=== PATIENT | female | born 1955 | race Caucasian/White ===

== ENCOUNTER 2016-11-29 15:52 | Emergency (ER) | payer OTHER ==
[~2016-11-29] VITALS: Ht 157.5 cm; Wt 105.5 kg
[2016-11-29 15:56] VITALS: BP 149/84; PULSE 78; RESP 20; O2SAT 98
--- NOTE | 2016-11-29 16:11 | ED.REPORT ---
HPI-Extremity Problem Upper Date of Service Nov 29, 2016 ED Provider: Serg Arciniega DO The patient is a 61 year old female with a hx of HTN who presents to the ED due to right shoulder pain after a ground level fall. She was walking outside down a slight incline, tripped and fell onto her shoulder. She states she, "almost blacked out," and can't move her right arm without extreme pain. Patient is moaning and crying in pain, but able to hold a conversation. She denies any other injury or associated pain. Nursing Notes Stated Complaint: GLF/ R ARM INJURY Chief Complaint: Extremity Trauma Nursing Notes Reviewed: Yes Allergies: Coded Allergies: Sulfa (Sulfonamide Antibiotics) (Verified Allergy, Severe, dyspnea, ) Scheduled PRN Hydrocodone-Acetaminophen 5-325 mg (Hydrocodone-Acetaminophen 5-325 mg) 1 Each Tablet 1 TABLET PO Q4H PRN PRN For Pain General Time Seen by MD: 16:10 Chief Complaint Shoulder injury right Hx Obtained From: Patient Arrived By: Walk-in Onset Occurred: Just prior to arrival Symptom Duration: Since onset Caused by: Fall on ground Location: : Shoulder right Severity: Current: Moderate Exacerbated by: Movement Pertinent Negative: Relieved by nothing Recent Healthcare: Recent doctor visit Similar Sx Previous: No Past Medical History Past Medical History Reports: Hypertension Past Surgical History achilles tendon Reports: Cholecystectomy, Hysterectomy Smoking History Former Smoker Social History Other Social History: Good social support, Ambulatory Status Independent Review of Systems Musculoskeletal: Reports: Joint pain (right shoulder) Complete sys rev & neg: except as marked. Physical Exam Initial Vital Signs Vital Signs (First) Date Time Temp Pulse Resp B/P Pulse Ox O2 Delivery O2 Flow Rate FiO2 11/29/16 15:56 36.5 78 20 149/84 98 Room Air Initial VS: Reviewed Head / Eyes: Atraumatic, Normocephalic, PERRL ENT: Mucous membranes moist, Conjunctiva normal, No scleral icterus Neck: Supple, Non-tender, Full range of motion Respiratory: Breath sounds normal, Clear to auscultation, No respiratory distress Cardiovascular: Regular rate & rhythm, Heart sounds normal, Intact distal pulses Abdomen / GI: Soft, Non-tender, No guarding, No rebound, No distention Lower Extremities: Vascular intact, Neuro intact, No swelling, No tenderness Skin: Warm, Dry, No cyanosis Psychiatric: Mood/affect normal, Behavior normal, Normal thought content General/Constitutional: Awake, Alert, Cooperative Behavior: Positive: Anxious, Tearful Right Shoulder: Positive: Tenderness present... Tenderness of proximal humerus Distally and neurovascularly intact Interpretation & Diagnostics X-Ray Interpretation Xray Interpretation: HUMERUS X-RAY IMPRESSION: Displaced acute fracture involving the proximal humeral head/neck junction with extension of fracture planes into the base of the greater tuberosity. Additional dedicated shoulder plain films are scheduled for further evaluation. Dictated by: Aniket Farmer M.D. on 11/29/2016 at 16:52 Approved by: Aniket Farmer M.D. on 11/29/2016 at 16:54 X-Ray Ordered: Humerus right Interpretation / Wet Read by: Interpret - Radiologist Procedures Splint Post-Application Eval Splint Post-Application Eval: right shoulder sling Extremity Condition: Cap refill < 2 sec, Distal sensation intact, Distal motor Intact, No compartment syndrome Re-Eval/Medical Decision Med Decision/Clinical Course Humeral neck fracture neurovascularly intact. Placed a shoulder sling. No other identifiable injuries. Discharged on Mongo. Return precautions given including orthopedic follow-up in 1 week. Re-Evaluation/Progress : Time of Eval: 16:59 Re-Evaluation/Progress Note: Pt rechecked. Informed of x-ray results and right shoulder fracture and plan for treatment. Pt understands and agrees with plan. Counseled Regarding: Diagnosis, Lab results, Need for follow-up, When/why to return to ED Discharge & Departure Impression: Primary Impression: Proximal humerus fracture Encounter type: initial encounter Fracture type: open Fracture morphology: unspecified fracture morphology Laterality: right Qualified Code: S42.201B - Unspecified fracture of upper end of right humerus, initial encounter for open fracture Disposition: Home Discharge Condition All VS Reviewed: Yes Condition: Stable Additional Instructions: Thank you for entrusting us with your health care today. We are so sorry that you hurt your arm. Luckily it does not appear at this time that your fracture would need surgery. Use Mongo for pain. Wear the shoulder sling as much as possible in order to let your arm and shoulder rest. You may develop bruising. Call the orthopedic surgeon as soon as possible to schedule a close follow-up appointment. Return to the ER if you develop uncontrollable pain, loss of motor or sensory function to your arm, or other concerns Scribe Attestation Portion of this note were transcribed by Skyla Medina. I, Dr. Arciniega, personally performed the history, physical exam, and medical decision-making: I reviewed and confirmed the accuracy for the information in the transcribed note. Signed by: jack Michael, 11/29/16 1730 Serg Arciniega DO Nov 29, 2016 16:11 SKYLA MEDINA Nov 29, 2016 16:28
[2016-11-29] MEDS ORDERED: HYDROmorphone 0.5 mg/0.5 mL iSecure Syringe IM ONE (16:25)
--- NOTE | 2016-11-29 16:55 | DRSVH ---
PROCEDURE: X-RAY RIGHT HUMERUS, MINIMUM TWO VIEWS ([id number]) INDICATIONS: Fall, pain TECHNIQUE: 2 views of the humerus were acquired. COMPARISON: None. FINDINGS: Bones: No dislocations. No suspicious bony lesions. There is a fracture involving the humeral head /neck junction with additional fracture planes extending into the base of the greater tuberosity. Th e fracture is displaced by approximately 2 cm from anatomic alignment, and through the diaphysis and into the elbow area included on this study no definite acute trauma is found. Soft tissues: No suspicious soft tissue calcifications. IMPRESSION: Displaced acute fracture involving the proximal humeral head/neck junction with extension of fracture planes into the base of the greater tuberosity. Additional dedicated shoulder plain jennifer ms are scheduled for further evaluation. Dictated by: Aniket Farmer M.D. on 11/29/2016 at 16:52 Approved by: Aniket Farmer M.D. on 11/29/2016 at 16:54
--- NOTE | 2016-11-29 17:15 | DRSVH ---
PROCEDURE: X-RAY RIGHT SHOULDER, MINIMUM TWO VIEWS ([id number]) INDICATIONS: eval for fracture TECHNIQUE: 3 views of the shoulder were acquired. COMPARISON: None. FINDINGS: Bones: Severely displaced fracture of the surgical neck of the right humerus. There is also fracture extension to the greater tuberosity Soft tissues: No suspicious soft tissue calcifications. IMPRESSION: Severely displaced fracture of the surgical neck of the right humerus, probably extending to the greater tuberosity. Dictated by: Matthias Camejo M.D. on 11/29/2016 at 17:12 Approved by: Matthias Camejo M.D. on 11/29/2016 at 17:14
[2016-11-29] MEDS ORDERED: HYDR-4003 PO (17:24)
[2016-11-29] MEDS ORDERED: HYDROcodone-APAP 5-325 mg Tablet PO ONE ×2 (17:25→17:45)
[2016-11-29 17:50] VITALS: BP 149/84; PULSE 78; RESP 20; O2SAT 98
== END 2016-11-29 17:50 | disposition home or self-care (01) ==
LOC: SED 15:52
DX: S42.21 Unspecified fracture of surgical neck of humerus (principal); W01.0XXA Fall on same level from slipping, tripping and stumbling without subsequent striking against object, initial encounter; Y93.01 Activity, walking, marching and hiking; Y92.009 Unspecified place in unspecified non-institutional (private) residence as the place of occurrence of the external cause; Y99.8 Other external cause status; I10 Essential (primary) hypertension; Z87.891 Personal history of nicotine dependence; Z88.2 Allergy status to sulfonamides
CPT/HCPCS: 73030; 73060; 96372; 99284; J1170